=== PATIENT | male | born 1975 | race Caucasian/White ===

== ENCOUNTER 2018-11-16 08:44 | Emergency (ER) | payer MEDICAID, SELFPAY ==
[2018-11-16 08:48] VITALS: BP 113/60; PULSE 118; RESP 16; TEMP 36.7; O2SAT 98
--- NOTE | 2018-11-16 09:54 | ED.GENADUL_ITS ---
Discharge Plan Disposition Patient Disposition: HOME Condition: Stable Discharge Details Chief Complaint: Nk/Back Pain Clinical Impression: Spasm of thoracic back muscle Primary Care Provider: Jodi Sullivan V ED Provider: Bro Burns Home Meds and New Rx's Prescriptions: New methocarbamol 500 mg tablet 500 - 1,000 mg PO Q6H PRN (Reason: Back Pain) Qty: 14 RF: 0 Continued acetaminophen [Tylenol Extra Strength] 500 mg Tablet 1,000 mg PO Q4H PRNRF: 0 Discharge Instructions Instructions: Muscle Spasm (ED) Additional Instructions: May use both heat and/or ice as we discussed. May use Tylenol 1000 mg every 6 hours for pain. May use ibuprofen 800 mg every 8 hours. Remove the Lidoderm patch in 12 hours time. May use methocarbamol as prescribed. Please follow-up with physical therapy as prescribed. Return if you develop increasing pain, develop a rash, difficulty with urination, develop weakness or numbness of the legs Follow-up with [facility] for recheck if not improved in 5-7 days Stand Alone Forms: Physical Therapy Referral Discharge Data Discharge Date/Time-TO BE ENTERED AT DEPARTURE: 11/16/18 11:07 Medical Decision Making 42-year-old male who lives in [place]. He presents with 1 week of right flank pain that is worse with sitting and radiates to his abdomen and groin. Minimally improved with home Tylenol. He is not of a fever. He is tachycardic and in some mild distress upon evaluation. Differential diagnosis includes occult rib fracture, deep back muscular strain, renal colic. Patient had IV access established, given fluid bolus, ketorolac, additional parenteral analgesic with hydromorphone. Laboratories are reassuring but do note significant dehydration with a specific gravity 1.03. CT images: 2 mm left-sided intrarenal calculus, no other significant acute findings. Patient's pain is improved. Able to ambulate without difficulty. Given the lack of other significant findings, most consistent with deep back strain. Discussed with him home management including muscle relaxants. Will re sandy to physical therapy. Lab Data Lab results reviewed: Yes I reviewed the patient's lab results. Laboratory Results - last 24 hr 11/16/18 11/16/18 11/16/18 10:15 10:15 11:00 WBC 6.90 RBC 5.19 Hgb 16.5 Hct 46.7 MCV 90.0 MCH 31.8 MCHC 35.3 RDW 12.9 Plt Count 181 MPV 9.8 Immature Gran % 0.1 Neutrophils % 55.6 Lymphocytes % 37.1 Monocytes % 6.1 Eosinophils % 1.0 Basophils % 0.1 Absolute Neutrophils 3.83 Absolute Lymphocytes 2.56 Absolute Monocytes 0.42 Absolute Eosinophils 0.07 Absolute Basophils 0.01 Sodium 139 Potassium 3.6 Chloride 103 Carbon Dioxide 26.5 Anion Gap 9.5 BUN 25 H Creatinine 0.94 Estimated GFR/1.73 m2 >= 60.00 Glucose 99 Calcium 9.2 Total Bilirubin 0.6 AST 11 L ALT 15 Alkaline Phosphatase 75 Total Protein 7.1 Albumin 4.1 Urine Color Yellow Urine Clarity Clear Urine pH 5.5 Ur Specific [place] >= 1.030 H Urine Protein 30 H Urine Ketones 15 H Urine Blood Trace-intact H Urine Nitrite Negative Urine Bilirubin Small H Urine Urobilinogen 0.2 Ur Leukocyte Esterase Negative Urine Glucose Negative HPI General Mode of arrival: ambulatory . Date/Time Provider Initiated Documentation: 11/16/18 09:18 . Limitations to Documentation: no limitations . Information obtained by: patient and family . History of Present Illness 42 year old M presents to the emergency department with the chief complaint of Right flank pain for 1 week, worse with sitting, described as moderate, Quality is described as dull and constant, and is localized to the back and right. Patient distal. Patient started experiencing this day(s) and it has been constant. other things that improve symptom(s), (Standing) Other factors that worsen symptoms (Sitting) . Patient notes denies chest pain. Patient did receive the following treatments prior to arrival, NSAID Related Data Home Medications Medication Instructions Recorded Confirmed acetaminophen [Tylenol Extra 1,000 mg PO Q4H PRN 11/16/18 11/16/18 Strength] methocarbamol 500 - 1,000 mg PO Q6H PRN #14 tab 11/16/18 Previous Rx's Medication Instructions Recorded methocarbamol 500 - 1,000 mg PO Q6H PRN #14 tab 11/16/18 Allergies Allergy/AdvReac Type Severity Reaction Status Date / Time No Known Allergies Allergy Unverified 11/16/18 08:51 General Stated Complaint: Nk/Back Pain CARLITO: 3 Review of Systems Review of Systems Denies fall or injury. No rash. No recent illness. Minimally improved with Tylenol. 8 systems reviewed and otherwise negative [facility] Social History Smoking/Tobacco Use Status: Current every day Drug use: Current Sobriety Do you feel safe at home: Yes Do you feel safe in your relationship?: Yes Exam Narrative Exam Narrative: GEN: awake, alert, oriented 3. Pleasant, well groomed, interactive. HEAD: Normocephalic, atraumatic ENT: Mucous membranes moist, oropharynx unremarkable, External ear exam unremarkable EYES: PERRL, EOMI NECK: Full ROM, no ROSALIO, no menigismus CHEST/RESP: Nontender, clear to auscultation bilateral, no wheeze/rhonchi/rales CARDIOVASCULAR: RRR, no murmur, rub florentino. 2+ Rad pulse bilateral ABDOMEN: Soft, nontender, no mass. +Bowel sounds Back: Right flank tenderness to palpation. No midline step-off, deformity EXT: Full ROM, no edema, no rash Neuro: Grossly normal neurologic exam, conversant, interactive. Psych: Speech fluent, thoughts congruent, affect normal Course Vital Signs Temperature 36.7 C 11/16/18 08:48 Pulse 118 H 11/16/18 08:48 Respiratory Rate 16 11/16/18 08:48 Blood Pressure 113/60 11/16/18 08:48 Pulse Oximetry 98 11/16/18 08:48 Temperature 36.7 C 11/16/18 08:48 Temperature Source Temporal Artery Scan 11/16/18 08:48 Pulse 118 H 11/16/18 08:48 Respiratory Rate 16 11/16/18 08:48 Respiratory Effort Non-Labored 11/16/18 08:52 Blood Pressure 113/60 11/16/18 08:48 Blood Pressure Position Standing 11/16/18 08:48 Pulse Oximetry 98 11/16/18 08:48 Oxygen Delivery Method Room Air 11/16/18 08:48 Oxygen Flow Rate 0 11/16/18 08:48 Pain Level 8 11/16/18 08:53
[2018-11-16] MEDS: Lidocaine 5% Patch 1 PATCH TP (10:25)
[2018-11-16] MEDS: Ketorolac 30 MG/ML VIAL IVP (10:25)
[2018-11-16 10:30] LABS: Abs Immature Grans 0.01 k/cumm (0.0-0.09); Absolute Basophil Count 0.01 k/cumm (0.0-0.2); Absolute Eosinophil Count 0.07 k/cumm (0.0-0.7); Absolute Lymphocyte Count 2.56 k/cumm (1.2-3.4); Absolute Monocyte Count 0.42 k/cumm (0.11-0.7); Absolute Neutrophil Count 3.83 k/cumm (1.2-6.7); Basophils % 0.1; HCT 46.7 % (40.0-50.0); HGB 16.5 g/dL (13.5-17.5); Immature Grans % 0.1; Lymphocytes % 37.1; Mean Corp. HGB Concentration 35.3 g/dL (32.0-36.0); Mean Corpuscular Hemoglobin 31.8 pg (27.0-33.0); Mean Platelet Volume 9.8 fL (8.0-11.0); Monocytes % 6.1; Neutrophils % 55.6; Platelet Count 181 x1000/uL (130-400); RBC 5.19 m/cumm (4.50-6.00); RBC Distribution Width 12.9 % (11.8-14.1)
[2018-11-16] MEDS: Normal Saline 1,000 ML 1000 ML IV (10:39)
[2018-11-16 10:42] LABS: ALT 15 U/L (12-78); AST 11 U/L (15-37); Albumin 4.1 g/dL (3.4-5.0); Alkaline Phosphatase 75 U/L (46-116); Anion Gap 9.5 mmol/L (3-11); BUN 25 mg/dL (7-18); Bilirubin, Total 0.6 mg/dL (0.2-1.0); CO2 26.5 mmol/L (21.0-32.0); CREATININE 0.94 mg/dL (0.70-1.30); Calcium 9.2 mg/dL (8.5-10.1); Chloride 103 mmol/L (98-107); Glucose 99 mg/dL (70-100); Potassium 3.6 mmol/L (3.5-5.1); Sodium 139 mmol/L (136-145); Total Protein 7.1 g/dL (6.4-8.2)
--- NOTE | 2018-11-16 10:55 | DI.CT_ITS ---
SYMPTOMS/DIAGNOSIS: RT FLANK PAIN, WORSE WITH SITTING, HX STONES RENAL COLIC CT: Routine examination. No priors. The visualized lung bases are clear. Lack of IV contrast does limit evaluation of the abdominal and pelvic organs. The unenhanced visualized portions of the liver, gallbladder, bile ducts, pancreas and adrenal glands are unremarkable. There are calcifications seen within the spleen consistent with prior granulomatous disease. The right kidney shows no evidence of nephrolithiasis or hydronephrosis. There is a 2 mm nonobstructing stone in the mid pole of the left kidney. No ureterolithiasis or hydronephrosis is seen. The urinary bladder is intact. The reproductive organs are unremarkable. The bowel is unremarkable. There is a normal appendix present. No abdominal or pelvic adenopathy, ascites or pneumoperitoneum is seen. The abdominal aorta is of normal caliber. No acute fracture or dislocation is identified. IMPRESSION: 1. Left nephrolithiasis. 2. No evidence of hydronephrosis. The findings were discussed with Dr. Burns of the emergency department on the date of the examination.
[2018-11-16] MEDS: HYDROmorphone 2 MG/ML VIAL 1 MG IVP (11:04)
[2018-11-16 11:07] LABS: Bilirubin Small (Negative); Blood Trace-intact (Negative); Clarity Clear; Glucose Negative (Negative); Ketones 15 mg/dL (Negative); Leukocyte Esterase Negative (Negative); Nitrite Negative (Negative); Specific Gravity >= 1.030 (1.005-1.025); Urobilinogen 0.2 EU/dL (Up TO 0.2); pH 5.5 (5-8)
[2018-11-16 11:18] LABS: Epithelial Cells Rare HPF (Negative)
[2018-11-16 11:19] LABS: Bacteria Negative HPF (Negative); C & S Indicated? Yes; Casts 0-2 Coarse Granular LPF (Negative); Crystals Negative HPF (Negative); Mucus Heavy (Negative); Other Cells Negative (Negative)
[2018-11-16 11:41] VITALS: BP 113/60; PULSE 88; RESP 16; TEMP 36.7; O2SAT 98
== END 2018-11-16 11:07 | disposition home or self-care (01) ==
PROVIDERS: Emergency Provider Emergency Medicine; PCP Family Medicine
DX: M62.830 Muscle spasm of back (principal)
CPT/HCPCS: 36415; 80053; 96361; 96374; 96375; 99284; 74176; 81003; 81015; 85025; 87086; J1885

== ENCOUNTER 2023-04-18 18:14 | Emergency (ER) | payer MEDICAID, SELFPAY ==
[2023-04-18 18:17] VITALS: BP 114/75; PULSE 89; RESP 20; TEMP 36.8; O2SAT 97
[2023-04-18] MEDS: Lidocaine 2% Multi-Dose 50 ML VIAL (18:40)
--- NOTE | 2023-04-18 18:46 | ED.GENADUL_ITS ---
Discharge Plan Disposition Patient Disposition: Home Condition: Stable Discharge Details Clinical Impression: Laceration of finger Primary Care Provider: Jodi Sullivan V ED Provider: Brenda Mejia Home Meds and New Rx's Prescriptions: New cephalexin 500 mg tablet 500 mg PO QID Qty: 20 0RF Continued acetaminophen [Tylenol Extra Strength] 500 mg Tablet 1,000 mg PO Q4H PRN Patient Comments: does not take methocarbamol 500 mg tablet 500 - 1,000 mg PO Q6H PRN (Reason: Back Pain) Qty: 14 0RF Patient Comments: does not take Discharge Instructions Instructions: Finger Laceration (ED) Additional Instructions: Keep dressing clean dry and intact After the first 24 hours then remove and wash daily with warm soapy water rinse well pat dry completely. You can apply dry dressing to protect Suture removal in 7 to 10 days Report signs of infection immediately You have been given a prescription to take if you have increased redness drainage pain fever or sign of infection, Referrals: Jodi Sullivan MD [Primary Care Provider] - (Return in 7 to 10 days needed to your primary care provider or the emergency department for suture removal return sooner for signs of infection) Medical Decision Making Wound is anesthetized using lidocaine 2% with good effect. Wound cleansed by nursing. Wound bed examined no foreign debris noted. Wound edges approximated using Prolene 3-0 suture material, 5 simple interrupted sutures. wound dressed by nursing. HPI General Mode of arrival: ambulatory . Date/Time Provider Initiated Documentation: 04/18/23 18:32 . Limitations to Documentation: no limitations . Information obtained by: patient . HPI Narrative: cut left ring finger on a floor louie there is no other injury. He has full range of motion and strength to his fingers against. this occurred while working in his garage. Related Data Home Medications Medication Instructions Recorded Confirmed acetaminophen 500 mg tablet 1,000 mg PO Q4H PRN 11/16/18 11/16/18 (Tylenol Extra Strength) methocarbamol 500 mg tablet 500 - 1,000 mg PO Q6H PRN Back 11/16/18 Pain #14 tabs cephalexin 500 mg tablet 500 mg PO QID #20 tabs 04/18/23 Previous Rx's Medication Instructions Recorded methocarbamol 500 mg tablet 500 - 1,000 mg PO Q6H PRN Back 11/16/18 Pain #14 tabs cephalexin 500 mg tablet 500 mg PO QID #20 tabs 04/18/23 Allergies Allergy/AdvReac Type Severity Reaction Status Date / Time No Known Allergies Allergy Unverified 04/18/23 18:21 General Stated Complaint: Laceration CARLITO: 4 Review of Systems All systems reviewed & are unremarkable except as noted in HPI and below PFSH All Active Problems (Updated 04/18/23 @ 18:50 by Brenda Mejia NP) Laceration of finger (Acute) Social History Smoking/Tobacco Use Status: Current every day Smoking risk assessment performed?: Yes Drug use: Current Sobriety Do you feel safe at home: Yes Do you feel safe in your relationship?: Yes Exam Skin Trauma: laceration (3 cm lateral aspect of left ring finger) Course Vital Signs Vital signs: Vital Signs Temperature 36.8 C 04/18/23 18:17 Pulse 89 04/18/23 18:17 Respiratory Rate 20 04/18/23 18:17 Blood Pressure 114/75 04/18/23 18:17 Pulse Oximetry 97 04/18/23 18:17 Temperature 36.8 C 04/18/23 18:17 Temperature Source Skin 04/18/23 18:17 Pulse 89 04/18/23 18:17 Respiratory Rate 20 04/18/23 18:17 Blood Pressure 114/75 04/18/23 18:17 Blood Pressure Position Sitting 04/18/23 18:17 Pulse Oximetry 97 04/18/23 18:17 Oxygen Delivery Method Room Air 04/18/23 18:17 Oxygen Flow Rate 0 04/18/23 18:17 Pain Level 3 04/18/23 18:17
[2023-04-18] MEDS: Cellulose,Oxidized 2X3 PKT 1 EACH MC (19:19)
== END 2023-04-18 19:13 | disposition home or self-care (01) ==
PROVIDERS: Emergency Provider Nurse Practitioner Acute Care; PCP Family Medicine
DX: S61.217A Laceration without foreign body of left little finger without damage to nail, initial encounter (principal); W31.89XA Contact with other specified machinery, initial encounter; Y93.89 Activity, other specified; Y99.9 Unspecified external cause status
CPT/HCPCS: 12002; 99283

== ENCOUNTER 2023-04-26 10:41 | Emergency (ER) | payer MEDICAID, SELFPAY ==
[2023-04-26 10:49] VITALS: BP 99/59; PULSE 71; RESP 14; TEMP 36.8; O2SAT 98
--- NOTE | 2023-04-26 11:05 | ED.GENADUL_ITS ---
Discharge Plan Disposition Patient Disposition: Home Discharge Details Clinical Impression: Encounter for post-traumatic wound check Primary Care Provider: Jodi Sullivan V ED Provider: Lemuel Moise Home Meds and New Rx's Prescriptions: No Action acetaminophen [Tylenol Extra Strength] 500 mg Tablet 1,000 mg PO Q4H PRN Patient Comments: does not take methocarbamol 500 mg tablet 500 - 1,000 mg PO Q6H PRN (Reason: Back Pain) Qty: 14 0RF Patient Comments: does not take cephalexin 500 mg tablet 500 mg PO QID Qty: 20 0RF Discharge Instructions Additional Instructions: Patient discharged prior to receiving paperwork -Verbal education on wound care and to return later this week for suture removal Discharge Data Discharge Date/Time-TO BE ENTERED AT DEPARTURE: 04/26/23 11:15 Medical Decision Making Patient presenting to the emergency department for chief complaint of suture removal. Patient had sutures placed approximately 8 days ago and states wound has been healing well. Patient denies all other symptoms. Physical exam shows intact sutures to left little finger patient does still have some slight paresthesias which may be due to area of laceration that may have caused slight nerve injury. 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 Discussed with patient waiting a few more days and returning for suture removal but I feel may lead to further success of wound healing. Patient was in agreement with this plan of care. After discussion of diagnosis and plan of care patient has no further needs, questions, or concerns and states clear understanding to return to the emergency department for any worsening symptoms. This documentation was generated using [employer] system, please disregard any oddities of phrase or misspellings. HPI General Mode of arrival: ambulatory . Date/Time Provider Initiated Documentation: 04/26/23 10:53 . Limitations to Documentation: no limitations . Information obtained by: patient, RN notes reviewed and old records reviewed . History of Present Illness 47 year old M presents to the emergency department with the chief complaint of Suture removal, Patient notes no other symptoms.. Related Data Home Medications Medication Instructions Recorded Confirmed acetaminophen 500 mg tablet 1,000 mg PO Q4H PRN 11/16/18 11/16/18 (Tylenol Extra Strength) methocarbamol 500 mg tablet 500 - 1,000 mg PO Q6H PRN Back 11/16/18 Pain #14 tabs cephalexin 500 mg tablet 500 mg PO QID #20 tabs 04/18/23 Previous Rx's Medication Instructions Recorded methocarbamol 500 mg tablet 500 - 1,000 mg PO Q6H PRN Back 11/16/18 Pain #14 tabs cephalexin 500 mg tablet 500 mg PO QID #20 tabs 04/18/23 Allergies Allergy/AdvReac Type Severity Reaction Status Date / Time No Known Allergies Allergy Unverified 04/18/23 18:21 General Stated Complaint: SutureRem CARLITO: 5 Review of Systems Constitutional Constitutional: Denies chills and Denies fever(s) Musculoskeletal Musculoskeletal: Denies arthralgias Integumentary/Breasts Skin/Breast: Denies rash and Denies skin swelling PFSH All Active Problems (Updated 04/26/23 @ 11:06 by Lemuel Moise NP) Laceration of finger (Acute) Encounter for post-traumatic wound check (Acute) Social History Smoking/Tobacco Use Status: Current every day Smoking risk assessment performed?: Yes Drug use: Current Sobriety Do you feel safe at home: Yes Do you feel safe in your relationship?: Yes Exam Const General: cooperative, comfortable and no acute distress Orientation: alert, awake and oriented x3 Skin Rashes: no rashes Trauma: laceration (healing well laceration without erythema, purulence, or dehiscence.) Course Vital Signs Vital signs: Vital Signs Temperature 36.8 C 04/26/23 10:49 Pulse 71 04/26/23 10:49 Respiratory Rate 14 04/26/23 10:49 Blood Pressure 99/59 L 04/26/23 10:49 Pulse Oximetry 98 04/26/23 10:49 Temperature 36.8 C 04/26/23 10:49 Temperature Source Skin 04/26/23 10:49 Pulse 71 04/26/23 10:49 Respiratory Rate 14 04/26/23 10:49 Blood Pressure 99/59 L 04/26/23 10:49 Blood Pressure Position Sitting 04/26/23 10:49 Pulse Oximetry 98 04/26/23 10:49 Oxygen Delivery Method Room Air 04/26/23 10:49 Oxygen Flow Rate 0 04/26/23 10:49 Pain Level 0 04/26/23 10:49
== END 2023-04-26 11:15 | disposition home or self-care (01) ==
PROVIDERS: Emergency Provider Nurse Practitioner Family; PCP Family Medicine
DX: S61.217A Laceration without foreign body of left little finger without damage to nail, initial encounter (principal); X58.XXXA Exposure to other specified factors, initial encounter

== ENCOUNTER 2023-05-01 10:28 | Emergency (ER) | payer MEDICAID, SELFPAY ==
[2023-05-01 10:33] VITALS: BP 142/80; PULSE 80; RESP 18; TEMP 36.8; O2SAT 98
--- NOTE | 2023-05-01 11:01 | ED.GENADUL_ITS ---
Discharge Plan Discharge Details Chief Complaint: SutureRem Clinical Impression: Visit for suture removal Primary Care Provider: Jodi Sullivan V ED Provider: Hector Galarza Home Meds and New Rx's Prescriptions: No Action acetaminophen [Tylenol Extra Strength] 500 mg Tablet 1,000 mg PO Q4H PRN Patient Comments: does not take methocarbamol 500 mg tablet 500 - 1,000 mg PO Q6H PRN (Reason: Back Pain) Qty: 14 0RF Patient Comments: does not take cephalexin 500 mg tablet 500 mg PO QID Qty: 20 0RF Discharge Instructions Instructions: Stitches Removal (ED) Medical Decision Making 47-year-old male presents for suture removal from left fifth finger, 5 simple interrupted sutures removed successfully. No evidence of bleeding or infection. Finger is warm well perfused mobile. Home care instructions and return precautions given HPI General Date/Time Provider Initiated Documentation: 05/01/23 10:48 . HPI Narrative: 47-year-old male presents for suture removal, sustained laceration to left fifth digit April 26; had 5 simple interrupted sutures placed; no bleeding no purulent drainage no rash no redness no systemic signs of illness Related Data Home Medications Medication Instructions Recorded Confirmed acetaminophen 500 mg tablet 1,000 mg PO Q4H PRN 11/16/18 11/16/18 (Tylenol Extra Strength) methocarbamol 500 mg tablet 500 - 1,000 mg PO Q6H PRN Back 11/16/18 Pain #14 tabs cephalexin 500 mg tablet 500 mg PO QID #20 tabs 04/18/23 Previous Rx's Medication Instructions Recorded methocarbamol 500 mg tablet 500 - 1,000 mg PO Q6H PRN Back 11/16/18 Pain #14 tabs cephalexin 500 mg tablet 500 mg PO QID #20 tabs 04/18/23 Allergies Allergy/AdvReac Type Severity Reaction Status Date / Time No Known Allergies Allergy Unverified 04/18/23 18:21 General Stated Complaint: SutureRem CARLITO: 5 Review of Systems Narrative: Review of Systems Constitutional: negative Eyes: negative ENT: negative Cardiovascular: negative Respiratory: negative Gastrointestinal: negative : negative Musculoskeletal: negative Skin: Laceration Neurologic: negative Psych: negative PFSH All Active Problems (Updated 05/01/23 @ 11:04 by Hector Galarza MD) Laceration of finger (Acute) Encounter for post-traumatic wound check (Acute) Visit for suture removal (Acute) Social History Smoking/Tobacco Use Status: Current every day Smoking risk assessment performed?: Yes Drug use: Current Sobriety Do you feel safe at home: Yes Do you feel safe in your relationship?: Yes Exam Narrative Exam Narrative: Finger: Well-healed laceration, 5 simple erupted sutures in place, no induration erythema purulence or drainage. Flexion extension in finger intact Course Vital Signs Vital signs: Vital Signs Temperature 36.8 C 05/01/23 10:33 Pulse 80 05/01/23 10:33 Respiratory Rate 18 05/01/23 10:33 Blood Pressure 142/80 H 05/01/23 10:33 Pulse Oximetry 98 05/01/23 10:33 Temperature 36.8 C 05/01/23 10:33 Temperature Source Oral 05/01/23 10:33 Pulse 80 05/01/23 10:33 Respiratory Rate 18 05/01/23 10:33 Respiratory Effort Normal, Non-Labored 05/01/23 10:42 Blood Pressure 142/80 H 05/01/23 10:33 Blood Pressure Position Supine 05/01/23 10:33 Pulse Oximetry 98 05/01/23 10:33 Oxygen Delivery Method Room Air 05/01/23 10:33 Oxygen Flow Rate 0 05/01/23 10:33 Pain Level 0 05/01/23 10:33
[2023-05-01 11:07] VITALS: BP 142/80; PULSE 80; RESP 18; TEMP 36.8; O2SAT 98
== END 2023-05-01 17:12 | disposition home or self-care (01) ==
LOC: ER 11:03
PROVIDERS: Emergency Provider Emergency Medicine; PCP Family Medicine
DX: Z48.02 Encounter for removal of sutures (principal)